=== PATIENT | female | born 1995 | race Caucasian/White ===

== ENCOUNTER 2017-02-19 10:08 | Observation (INO) | payer SELFPAY ==
[2017-02-19 12:14] VITALS: BP 140/86; PULSE 76
[2017-02-19] MEDS ORDERED: XYLOCAINE 1% HCL 20 ML MDV IJ PRN (21:52)
[2017-02-19] MEDS ORDERED: Lactated Ringers 1,000 ML IV SCH (22:00)
[2017-02-19] MEDS ORDERED: PITOCIN 30 UNITS/ LR 500 ML 500 ML IV SCH (22:00)
[2017-02-19 22:26] LABS: Mean Cell Volume 83.5 fl (78-100); Platelet Count 101 K/mm3 (150-450); Red Blood Count 4.68 M/mm3 (4.1-5.4); Red Cell Distribution Width 16.1 % (11.5-14.0); White Blood Count 18.5 K/mm3 (4.0-10.5)
[2017-02-20 00:28] LABS: Total Cells Counted 100
[2017-02-20 00:29] LABS: Platelet Estimate DECREASED (NORMAL)
== END 2017-02-19 12:19 | disposition home or self-care (01) ==
LOC: OB 10:08 → INTOOBSV 12:00 → OBSVTOIN 12:00
PROVIDERS: ADMIT Family Medicine; ATTEND Family Medicine
DX: Z34.03 Encounter for supervision of normal first pregnancy, third trimester (principal)
CPT/HCPCS: 36415; 59025; 85025; G0378

== ENCOUNTER 2017-02-19 21:30 | Inpatient (IN) | payer SELFPAY ==
[2017-02-19] MEDS ORDERED: Lactated Ringers 1,000 ML IV ONE (21:39)
[2017-02-19] MEDS ORDERED: PITOCIN 30 UNITS/ LR 500 ML 500 ML IV ONE (21:39)
[2017-02-19] MEDS: Lactated Ringers 1,000 ML IV SCH (22:00)
[2017-02-20] MEDS ORDERED: Lactated Ringers 1,000 ML IV ONE (00:34)
[2017-02-20] MEDS: Lactated Ringers 1,000 ML IV SCH (00:40)
[2017-02-20] MEDS ORDERED: XYLOCAINE 1% HCL 20 ML MDV ONE (01:37)
[2017-02-20] MEDS ORDERED: XYLOCAINE 1% HCL 20 ML MDV IJ PRN (07:54)
[2017-02-20] MEDS ORDERED: PITOCIN 30 UNITS/ LR 500 ML 500 ML IV SCH (08:00)
[2017-02-20] MEDS ORDERED: LANSINOH 40 GM TOP PRN (08:03)
[2017-02-20] MEDS ORDERED: Ambien 10 MG PO PRN (08:03)
[2017-02-20] MEDS ORDERED: TYLENOL EXTRA STRENGTH 500 MG PO PRN (08:03)
[2017-02-20] MEDS ORDERED: Dermoplast Spray TP PRN (08:03)
[2017-02-20] MEDS ORDERED: Anucort-HC SUPPOSITORY PR PRN (08:03)
[2017-02-20] MEDS ORDERED: Dulcolax 10 MG SUPP PR PRN (08:03)
[2017-02-20] MEDS ORDERED: CORTISONE 1% CREAM TP PRN (08:03)
[2017-02-20] MEDS ORDERED: Mylicon 80MG PO PRN (08:03)
[2017-02-20] MEDS ORDERED: TUCKS TP PRN (08:03)
[2017-02-20] MEDS ORDERED: NORCO 5/325 MG PO PRN (08:03)
[2017-02-20] MEDS ORDERED: MOTRIN 400 MG PO PRN (08:03)
[2017-02-20] MEDS ORDERED: Colace 100 MG PO SCH (10:00)
[2017-02-20] MEDS ORDERED: FERREX 150 PO SCH (10:00)
[2017-02-21 05:29] LABS: BASOPHIL % 0.2 % (0.0-0.4); Eosinophil % 0.7 % (0.00-5.0); Granulocytes % 79.2 % (36.0-66.0); Lymphocytes % 13.8 % (24.0-44.0); Mean Cell Volume 86.7 fl (78-100); Mean Platelet Volume 12.6 fl (6-9.5); Monocytes % 6.1 % (0.0-12.0); Platelet Count 93 K/mm3 (150-450); Red Blood Count 3.91 M/mm3 (4.1-5.4); Red Cell Distribution Width 16.1 % (11.5-14.0)
[2017-02-21 05:34] LABS: Mean Corpuscular Hemoglobin 27.8 pg (26-32)
[2017-02-21 13:38] VITALS: BP 132/81; PULSE 89
== END 2017-02-21 12:00 | disposition home or self-care (01) | DRG 775 ==
LOC: OB 21:30 → UNDOADMIN 21:35 → OB 21:35
PROVIDERS: ADMIT Family Medicine; ATTEND Family Medicine
PROC: 10E0XZZ Delivery of Products of Conception, External Approach (ICD-10-PCS; principal; 2017-02-19)
PROC: 0KQM0ZZ Repair Perineum Muscle, Open Approach (ICD-10-PCS; 2017-02-19)
DX: O70.1 Second degree perineal laceration during delivery (principal); Z37.0 Single live birth; Z3A.41 41 weeks gestation of pregnancy
CPT/HCPCS: 36415; 80307; 85025; G0378; J2590; A9270-GY